=== PATIENT | female | born 1945 | race Caucasian/White ===

== ENCOUNTER 2017-03-11 08:57 | Inpatient (IN) | payer MEDICARE ==
[~2017-03-11] VITALS: Ht 172.7 cm; Wt 91.7 kg
[2017-03-11] MEDS ORDERED: SODIUM CHLORIDE FLUSH 10ML SYR IVF ONE (09:30)
[2017-03-11] MEDS ORDERED: ONDANSETRON 2MG/ML, 2ML IVP ONE (09:30)
[2017-03-11] MEDS ORDERED: MORPHINE SULFATE 4 MG/ML, 1ML ONE ×2 (09:42→11:05)
[2017-03-11] MEDS ORDERED: ONDANSETRON 2MG/ML, 2ML ONE ×2 (09:42→11:40)
[2017-03-11] MEDS: MORPHINE SULFATE 4 MG/ML, 1ML IVPush PRN ×2 (09:51→11:08)
[2017-03-11 09:56] LABS: BLOOD UREA NITROGEN 19 mg/dL (7-18)
[2017-03-11] MEDS ORDERED: CEFTRIAXONE PMX 1GM/50ML 50 ML IVPB ONE (10:00)
[2017-03-11] MEDS ORDERED: ATOR40TA PO (10:04)
[2017-03-11] MEDS ORDERED: CEFTRIAXONE PMX 1GM/50ML 50 ML ONE (10:15)
[2017-03-11] MEDS ORDERED: AZITHROMYCIN 500 MG in SODIUM CHLORIDE 0.9% 250 ML IV ONE (10:30)
[2017-03-11] MEDS ORDERED: SODIUM CHLORIDE 0.9% 1,000ML IVBOLUS ONE (10:30)
[2017-03-11] MEDS ORDERED: NS + 20MEQ KCL 1,000 ML IV SCH (11:05)
[2017-03-11] MEDS: CEFTRIAXONE PMX 1GM/50ML 50 ML IV SCH (11:19)
[2017-03-11] MEDS: AZITHROMYCIN 500 MG in SODIUM CHLORIDE 0.9% 250 ML IV SCH (11:19)
[2017-03-11] MEDS ORDERED: NS + 20MEQ KCL 1,000 ML IV ONE (11:28)
[2017-03-11] MEDS ORDERED: IBUPROFEN 200 MG TABLET ONE (11:28)
[2017-03-11] MEDS ORDERED: ENOXAPARIN 40 MG/0.4 ML ONE (11:28)
[2017-03-11] MEDS ORDERED: DOCUSATE 100 MG CAPSULE PO PRN (11:30)
[2017-03-11] MEDS ORDERED: GUAIFENESIN/DM 200-20MG, 10ML UDC PO PRN (11:30)
[2017-03-11] MEDS ORDERED: HYDROcodone/APAP 5/325 TABLET PO PRN (11:30)
[2017-03-11] MEDS ORDERED: methylPREDNISolone SOD SUCC 125 MG/2 ML IV ONE (11:30)
[2017-03-11] MEDS ORDERED: POLYETHYLENE GLYCOL 17 GM PACKET PO PRN (11:30)
[2017-03-11] MEDS ORDERED: ACETAMINOPHEN 325 MG TABLET PO PRN (11:30)
[2017-03-11] MEDS: IBUPROFEN 600 MG TABLET PO SCH ×3 (11:38→21:00)
[2017-03-11] MEDS: ENOXAPARIN 40 MG/0.4 ML SQ SCH (11:39)
[2017-03-11] MEDS: ONDANSETRON 2MG/ML, 2ML IVP PRN ×3 (11:41→18:22)
[2017-03-11] MEDS ORDERED: methylPREDNISolone SOD SUCC 125 MG/2 ML ONE (12:06)
[2017-03-11 13:09] VITALS: BP 125/81
[2017-03-11 13:28] VITALS: BP 128/81
[2017-03-11 20:00] VITALS: BP 124/76
[2017-03-11] MEDS ORDERED: DIPHENOXYLATE/ATROPINE TABLET PO PRN (21:00)
[2017-03-11] MEDS: ATORVASTATIN 40 MG TABLET PO SCH (21:02)
[2017-03-12 02:00] VITALS: BP 134/73
[2017-03-12 05:58] LABS: BLOOD UREA NITROGEN 14 mg/dL (7-18)
[2017-03-12 06:10] LABS: IS PT STATUS REG ER OR PRE ER? NO
[2017-03-12 07:45] VITALS: BP 116/73
[2017-03-12] MEDS: IBUPROFEN 600 MG TABLET PO SCH ×3 (08:42→21:00)
[2017-03-12] MEDS: SENNA/DOCUSATE TABLET PO SCH (08:42)
[2017-03-12] MEDS: CEFTRIAXONE PMX 1GM/50ML 50 ML IV SCH (12:05)
[2017-03-12 13:29] VITALS: BP 105/67
[2017-03-12] MEDS: ENOXAPARIN 40 MG/0.4 ML SQ SCH (13:45)
[2017-03-12] MEDS: AZITHROMYCIN 500 MG in SODIUM CHLORIDE 0.9% 250 ML IV SCH (13:45)
[2017-03-12 20:00] VITALS: BP 135/58
[2017-03-12] MEDS: ATORVASTATIN 40 MG TABLET PO SCH (21:20)
[2017-03-13 02:00] VITALS: BP 146/75
[2017-03-13 07:13] VITALS: BP 131/81
[2017-03-13] MEDS ORDERED: AZIT500T4 PO (09:26)
[2017-03-13] MEDS ORDERED: CEFD300C2 PO (09:26)
[2017-03-13] MEDS ORDERED: IBUP-1222 PO (09:26)
[2017-03-13] MEDS: SENNA/DOCUSATE TABLET PO SCH (09:35)
[2017-03-13] MEDS: IBUPROFEN 600 MG TABLET PO SCH (09:35)
[2017-03-13] MEDS: CEFTRIAXONE PMX 1GM/50ML 50 ML IV SCH (09:40)
== END 2017-03-13 10:30 | disposition home or self-care (01) | DRG 871 ==
LOC: ED 09:22 → SUATTDRO 10:51 → EDIP 11:05 → 4WST 12:22 → DCLOUNGE 03-13 10:20
PROVIDERS: ADMIT Family Medicine; ATTEND Family Medicine
DX: A41.9 Sepsis, unspecified organism (principal); N17.0 Acute kidney failure with tubular necrosis; J18.9 Pneumonia, unspecified organism; J98.11 Atelectasis; E78.5 Hyperlipidemia, unspecified; E78.00 Pure hypercholesterolemia, unspecified; R09.02 Hypoxemia; Z66 Do not resuscitate; Z82.49 Family history of ischemic heart disease and other diseases of the circulatory system; Z88.5 Allergy status to narcotic agent
CPT/HCPCS: 36415; 71010; 80048; 82040; 83605; 84484; 85025; 85379; 85610; 85730; 87040; 93005; 96365; 96367; 96375; 96376; J0456; J0696; J1650; J2405; J3480; J2930; J7030; J7050